=== PATIENT | female | born 1970 | race Caucasian/White ===

== ENCOUNTER 2022-05-24 23:29 | Inpatient (IN) ==
[2022-05-25 01:38] LABS: Urine Benzodiazepine Screen None Detected (None Detect); Urine Cannabinoids Screen None Detected (None Detect); Urine Opiates Screen None Detected (None Detect)
[2022-05-25] MEDS ORDERED: Al Hydrox/Mg Hydrox/Simet LIQ 30 ML UDC PO PRN (12:04)
[2022-05-25] MEDS ORDERED: Albuterol HFA INHALER 8 gm MDI INH PRN (12:07)
[2022-05-25] MEDS ORDERED: BELBUCA SL SCH (18:00)
[2022-05-25] MEDS: Calcium/Vitamin D TAB 250/125 TAB PO SCH (22:10)
[2022-05-25] MEDS: BELBUCA SL SCH (22:11)
[2022-05-26] MEDS ORDERED: [UNRECOGNIZED DRUG - OTHER] PO SCH (08:00)
[2022-05-26] MEDS: Vitamin THERAPEUTIC TAB PO SCH (08:02)
[2022-05-26 08:17] LABS: ABS Basophils 0.1 10^3/ul (0-0.2); ABS Eosinophils 0.1 10^3/ul (0-0.6); ABS Monocytes 0.5 10^3/ul (0-0.8); ABS Neutrophils 3.2 10^3/ul (1.5-7.7); Hematocrit 35 % (35-47); Hemoglobin 11.6 g/dL (12.0-16.0); Mean Corpuscular HGB Conc 33 g/dL (31-36); Mean Corpuscular Hemoglobin 29 pg (27-31); Mean Corpuscular Volume 88 fL (80-97); Mean Platelet Volume 7.7 fL (7.4-10.4); Platelet Count 726 10^3/uL (150-450); Red Blood Count 4.02 10^6 /uL (3.70-4.87); Red Cell Distribution Width 14 % (10-15); White Blood Count 6.8 10^3/uL (3.5-10.8)
[2022-05-26 08:26] LABS: Albumin/Globulin Ratio 0.8 (1-3); Calcium 9.3 mg/dL (8.6-10.3); Globulin 3.6 g/dL (2-4); Potassium 4.7 mmol/L (3.5-5.0); Total Bilirubin 0.5 mg/dL (0.2-1.0); Total Protein 6.6 g/dL (6.4-8.9); eGFR CKD-EPI 106.7 (>60)
[2022-05-26 08:27] LABS: HDL Cholesterol 26.2 mg/dL
[2022-05-26 08:41] LABS: TSH Ultra Thyroid Stim Horm 0.53 mcIU/mL (0.34-5.60)
[2022-05-26] MEDS: Amphetamine MIXED SALT 10mgTAB PO SCH ×2 (10:44→11:26)
[2022-05-26] MEDS: BELBUCA SL SCH ×3 (11:10→19:41)
[2022-05-26] MEDS: Calcium/Vitamin D TAB 250/125 TAB PO SCH ×2 (11:11→20:16)
[2022-05-27] MEDS: Calcium/Vitamin D TAB 250/125 TAB PO SCH ×2 (08:05→22:27)
[2022-05-27] MEDS: Vitamin THERAPEUTIC TAB PO SCH (08:05)
[2022-05-27] MEDS: BELBUCA SL SCH ×2 (08:59→22:27)
[2022-05-28] MEDS: BELBUCA SL SCH ×2 (08:50→21:57)
[2022-05-28] MEDS: Calcium/Vitamin D TAB 250/125 TAB PO SCH ×2 (08:52→21:53)
[2022-05-28] MEDS: Vitamin THERAPEUTIC TAB PO SCH (08:52)
[2022-05-29] MEDS: Vitamin THERAPEUTIC TAB PO SCH (09:18)
[2022-05-29] MEDS: Calcium/Vitamin D TAB 250/125 TAB PO SCH ×2 (09:21→21:59)
[2022-05-29] MEDS: BELBUCA SL SCH ×2 (09:21→22:00)
[2022-05-30] MEDS: Vitamin THERAPEUTIC TAB PO SCH (07:46)
[2022-05-30] MEDS: BELBUCA SL SCH (07:47)
[2022-05-30] MEDS: Calcium/Vitamin D TAB 250/125 TAB PO SCH (07:48)
[2022-05-30 09:38] VITALS: BP 137/50
== END 2022-05-30 10:30 | disposition home or self-care (01) | DRG 881 ==
LOC: ED 23:29 → EDHOLD 05-25 09:10 → BSU 05-25 13:49
PROVIDERS: ADMIT Psychiatry & Neurology Addiction Psychiatry; ATTEND Psychiatry & Neurology Addiction Psychiatry